=== PATIENT | male | born 1965 | race American Indian/Alaskan Native ===

== ENCOUNTER 2024-12-14 07:54 | Day surgery (SDC) | payer BC ==
[2024-12-14] MEDS: Lactated Ringers 1,000 ML IV SCH (08:35)
[2024-12-14] MEDS: Clindamycin Phosphate in D5W 900 MG in Premix Bag 1 BAG IV ONE (08:39)
[2024-12-14] MEDS ORDERED: Propofol 200 MG/20 ML SDV ONE ×2 (09:09→10:15)
[2024-12-14] MEDS ORDERED: Ketamine HCL/NACL, ISO-OSM 50 MG/5 ML Syringe ONE (09:09)
[2024-12-14] MEDS ORDERED: Morphine 10 MG/ML SDV ONE ×2 (09:09→09:52)
[2024-12-14] MEDS ORDERED: propofoL 500 MG/50 ML 50 ML ONE (09:10)
[2024-12-14] MEDS ORDERED: Clindamycin Phosphate in D5W 900 MG in Premix Bag 1 BAG IV ONE (09:30)
[2024-12-14] MEDS ORDERED: Ondansetron 4 MG/2 ML SDV ONE (11:18)
[2024-12-14] MEDS ORDERED: Dexamethasone 4 MG/ML 5 ML MDV ONE (11:18)
[2024-12-14] MEDS ORDERED: Ketorolac 30 MG/ML SDV ONE (11:18)
== END 2024-12-14 12:45 | disposition home or self-care (01) ==
LOC: MW.SDS 07:54
PROVIDERS: ATTEND Podiatrist Foot & Ankle Surgery
DX: M86.8X7 Other osteomyelitis, ankle and foot (principal); E11.9 Type 2 diabetes mellitus without complications; Z88.8 Allergy status to other drugs, medicaments and biological substances
CPT/HCPCS: 28124; 82947; 87070; 87075; 87205; J0665; J0736; J1100; J1308; J1885; J2272; J2371; J2405; J2704; J7120; 01470; J3490